=== PATIENT | male | born 1965 | race American Indian/Alaskan Native ===

== ENCOUNTER 2017-01-28 10:04 | Emergency (ER) | payer BC, OTHER ==
[~2017-01-28] VITALS: Ht 170.2 cm; Wt 99.8 kg
[~2017-01-28 10:04] MED LIST: CLARINEX5 MG; FLONASE2 SPRAY NAS; NORCO 5-325 TA1 EACH PO; TOPROL XL100 MG PO
[2017-01-28] MEDS ORDERED: LOSARTAN POTASS50 MG PO (10:34)
[2017-01-28] MEDS ORDERED: SYNTHROID75 MCG PO (10:35)
[2017-01-28] MEDS ORDERED: NORCO 5-325 TA1 EACH PO (11:07)
== END 2017-01-28 11:20 | disposition home or self-care (01) ==
LOC: ED 10:04
DX: S80.11XA Contusion of right lower leg, initial encounter (principal); I10 Essential (primary) hypertension; W22.09XA Striking against other stationary object, initial encounter
CPT/HCPCS: 73590; 96374; 96375; 99283; J1885; J2405

== ENCOUNTER 2017-03-04 14:41 | Emergency (ER) | payer BC, OTHER ==
[~2017-03-04] VITALS: Ht 172.7 cm; Wt 95.2 kg
[~2017-03-04 14:41] MED LIST changes: +LOSARTAN POTASS50 MG PO; +SYNTHROID75 MCG PO
[2017-03-04] MEDS ORDERED: METOPROLOL SUC100 MG PO (14:53)
--- NOTE | 2017-03-04 20:04 | EKG ---
[facility] [address] [place] [address] Signed Normal sinus rhythm with sinus arrhythmia Left axis deviation Pulmonary disease pattern Abnormal ECG No previous ECGs available Confirmed by DEL EASLEY MD ([id number]) on 03/04/2017 8:04:47 PM Electronically Signed By: DEL EASLEY MD 03/04/17 2004 PATIENT NAME: EVAN CHILDERS Electrocardiogram DATE OF : 67 PHYSICIAN: DEL EASLEY MD REPORT #: [id number] REPORT IS CONFIDENTIAL AND NOT TO BE RELEASED WITHOUT AUTHORIZATION
== END 2017-03-04 16:02 | disposition home or self-care (01) ==
LOC: ED 14:41
DX: R07.2 Precordial pain (principal); I10 Essential (primary) hypertension; Z88.1 Allergy status to other antibiotic agents; Z88.5 Allergy status to narcotic agent; Z98.890 Other specified postprocedural states; Z79.51 Long term (current) use of inhaled steroids; Z79.899 Other long term (current) drug therapy
CPT/HCPCS: 71010; 80053; 84484; 85025; 93005; 93010; 99284

== ENCOUNTER 2017-06-02 11:41 | Emergency (ER) | payer BC, OTHER ==
[~2017-06-02] VITALS: Ht 172.7 cm; Wt 93.0 kg
--- OUTSIDE RECORDS SUMMARY | ~2017-06-02 | XMS | Clinical Summary ---
Demographics + + + | Address | [address] | | | [place] [address] | + + + | Home Phone | | + + + | Preferred Language | Unknown | + + + | Marital Status | | + + + | Voodoo Affiliation | Unknown | + + + | Race | Unknown | + + + | Ethnic Group | Unknown | + + + Author + + + | Author | [facility] | + + + | Organization | [facility] | + + + | Address | Unknown | + + + | Phone | Unavailable | + + + Care Team Providers + +------+ + | Care Graphics Programmer Name | Role | Phone | + +------+ + PP | Unavailable | + +------+ + Allergies + + + +--------+ + | Active Allergy | Reactions | Severity | Noted | Comments | | | | | Date | | + + + +--------+ + | Amoxicillin | | | | | + + + +--------+ + Current Medications Not on file Active Problems Not on file Social History + +-------+ +--------+------+ | Tobacco Use | Types | Packs/Day | Years | Date | | | | | Used | | + +-------+ +--------+------+ | Never Assessed | | | | | + +-------+ +--------+------+ + + + | Sex Assigned at | Date Recorded | | | | + + + | Not on file | | + + + Plan of Treatment + + + + + | Health Maintenance | Due Date | Last Done | Comments | + + + + + | HIV Screening | | | | | | 2 | | | + + + + + | Tetanus | | | | | | 6 | | | + + + + + | Colon Cancer | | | | | Screening | 7 | | | + + + + + | IMM Influenza (#1) | | | | | | 7 | | | + + + + + Results Not on filefrom Last 3 Months"
--- OUTSIDE RECORDS SUMMARY | ~2017-06-02 | XMS | Clinical Summary ---
Demographics + + + | Address | [address] | | | [place] [address] | + + + | Home Phone | | + + + | Preferred Language | Unknown | + + + | Marital Status | | + + + | Mosque Affiliation | Unknown | + + + [...] Team Providers + +------+ + | Care Sleeve Bottom Feller Name | Role | Phone | + [...]
[~2017-06-02 11:41] MED LIST changes: +METOPROLOL SUC100 MG PO
[2017-06-02] MEDS ORDERED: IMITREX100 MG PO (11:52)
[2017-06-02] MEDS ORDERED: ZOFRAN ODT4 MG PO (11:52)
[2017-06-02] MEDS ORDERED: CYCLOBENZAPRINE10 MG PO (14:14)
== END 2017-06-02 14:28 | disposition home or self-care (01) ==
LOC: ED 11:41
DX: G43.909 Migraine, unspecified, not intractable, without status migrainosus (principal); Z88.1 Allergy status to other antibiotic agents; Z88.5 Allergy status to narcotic agent; Z79.899 Other long term (current) drug therapy; Z79.51 Long term (current) use of inhaled steroids
CPT/HCPCS: 70450; 80053; 85025; 96361; 96374; 96375; 99284; J1200; J1885; J2550; J7030

== ENCOUNTER 2019-03-18 10:53 | Emergency (ER) | payer BC, OTHER ==
[~2019-03-18] VITALS: Ht 172.7 cm; Wt 93.0 kg
[~2019-03-18 10:53] MED LIST changes: +CYCLOBENZAPRINE10 MG PO; +IMITREX100 MG PO; +ZOFRAN ODT4 MG PO
[2019-03-18] MEDS ORDERED: LISINOPRIL10 MG PO (12:11)
[2019-03-18] MEDS ORDERED: HYDROXYZINE HCL25 MG PO (12:11)
--- NOTE | 2019-03-18 15:17 | EKG ---
[facility] [address] [place] [address] Signed Normal sinus rhythm Left axis deviation Pulmonary disease pattern Abnormal ECG When compared with ECG of 04-MAR-2017 14:45, T wave inversion no longer evident in Inferior leads Confirmed by EVAN LOPES DO ([id number]) on 03/18/2019 3:17:41 PM Electronically Signed By: EVAN LOPES DO 03/18/19 1517 PATIENT NAME: EVAN CHILDERS Electrocardiogram DATE OF : 67 PHYSICIAN: EVAN LOPES DO REPORT #: [id number] REPORT IS CONFIDENTIAL AND NOT TO BE RELEASED WITHOUT AUTHORIZATION
== END 2019-03-18 12:27 | disposition home or self-care (01) ==
LOC: ED 10:53
DX: R07.9 Chest pain, unspecified (principal); I10 Essential (primary) hypertension; F41.9 Anxiety disorder, unspecified; Z87.891 Personal history of nicotine dependence; Z88.0 Allergy status to penicillin; Z88.6 Allergy status to analgesic agent; Z79.899 Other long term (current) drug therapy
CPT/HCPCS: 71045; 80053; 84484; 85025; 93005; 93010; 96374; 99285-25; J2060

== ENCOUNTER 2019-04-21 18:13 | Emergency (ER) | payer BC, OTHER ==
[~2019-04-21] VITALS: Ht 172.7 cm; Wt 85.3 kg
[~2019-04-21 18:13] MED LIST changes: +HYDROXYZINE HCL25 MG PO; +LISINOPRIL10 MG PO
== END 2019-04-21 19:38 | disposition home or self-care (01) ==
LOC: ED 18:13
DX: S60.561A Insect bite (nonvenomous) of right hand, initial encounter (principal); W57.XXXA Bitten or stung by nonvenomous insect and other nonvenomous arthropods, initial encounter; I10 Essential (primary) hypertension; Z88.0 Allergy status to penicillin; Z88.5 Allergy status to narcotic agent; Z79.899 Other long term (current) drug therapy
CPT/HCPCS: 99282

== ENCOUNTER 2021-02-27 08:48 | Emergency (ER) | payer BC, OTHER ==
[~2021-02-27] VITALS: Ht 172.7 cm; Wt 85.3 kg
--- OUTSIDE RECORDS SUMMARY | 2021-02-27 08:56 | XMS ---
PreManage Notification: EVAN CHILDERS Security Gasoline Attendant Events No recent Security Events currently on file CRITERIA MET - [facility] - 2 Visits in 30 Days CARE PROVIDERS There are no care providers on record at this time. Ortega has no Care Guidelines for this patient. [facility] V[facility] COUNT (12 MO.) [facility] [address] [facility] TOTAL 3 NOTE: Visits indicate total known visits. 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
[2021-02-27] MEDS ORDERED: EPINEPHRIN0.15 MG/0. IM (09:59)
== END 2021-02-27 10:07 | disposition home or self-care (01) ==
LOC: ED 08:48
DX: T63.441A Toxic effect of venom of bees, accidental (unintentional), initial encounter (principal); I10 Essential (primary) hypertension; Z88.0 Allergy status to penicillin; Z88.5 Allergy status to narcotic agent; Z79.899 Other long term (current) drug therapy
CPT/HCPCS: 96374; 96375; 99282-25; J1100; J1200

== ENCOUNTER 2021-08-30 21:53 | Emergency (ER) | payer BC, OTHER ==
[~2021-08-30] VITALS: Ht 172.7 cm; Wt 89.3 kg
[~2021-08-30 21:53] MED LIST changes: +EPINEPHRIN0.15 MG/0. IM
[2021-08-30] MEDS ORDERED: CYCLOBENZAPRINE5 MG PO (23:48)
[2021-08-30] MEDS ORDERED: VISTARIL25 MG PO (23:48)
--- NOTE | 2021-09-02 17:50 | EKG ---
[facility] [address] [place] [address] Signed Sinus tachycardia Left axis deviation Inferior infarct , age undetermined Abnormal ECG When compared with ECG of 18-MAR-2019 10:57, No significant change was found Confirmed by DEL EASLEY MD ([id number]) on 09/02/2021 5:49:54 PM Electronically Signed By: DEL EASLEY MD 09/02/211749 PATIENT NAME: EVAN CHILDERS Electrocardiogram DATE OF : 67 PHYSICIAN: DEL EASLEY MD REPORT #: [id number] REPORT IS CONFIDENTIAL AND NOT TO BE RELEASED WITHOUT AUTHORIZATION
== END 2021-08-31 00:05 | disposition home or self-care (01) ==
LOC: ED 21:53
DX: R07.89 Other chest pain (principal); F41.9 Anxiety disorder, unspecified; I10 Essential (primary) hypertension; Z88.0 Allergy status to penicillin; Z88.5 Allergy status to narcotic agent; Z79.899 Other long term (current) drug therapy
CPT/HCPCS: 36415; 71045; 80053; 83735; 84484; 85025; 93005; 93010; 96374; 99285-25; J2060

== ENCOUNTER 2022-11-25 10:58 | Emergency (ER) | payer OTHER ==
[~2022-11-25] VITALS: Ht 172.7 cm; Wt 93.7 kg
[~2022-11-25 10:58] MED LIST changes: +CYCLOBENZAPRINE5 MG PO; +VISTARIL25 MG PO
[2022-11-25] MEDS ORDERED: MELOXICAM15 MG PO (11:34)
[2022-11-25 12:00] VITALS: BP 164/109
== END 2022-11-25 12:00 | disposition home or self-care (01) ==
LOC: ED 10:58
DX: S80.12XA Contusion of left lower leg, initial encounter (principal); W22.8XXA Striking against or struck by other objects, initial encounter; I10 Essential (primary) hypertension; Z88.0 Allergy status to penicillin; Z88.5 Allergy status to narcotic agent; Z79.899 Other long term (current) drug therapy
CPT/HCPCS: 73590